=== PATIENT | male | born 1945 | race Hispanic/Latino ===

== ENCOUNTER 2022-04-08 14:27 | Emergency (ER) | payer OTHER, MEDICAID, SELFPAY ==
[2022-04-08] VITALS (9 sets, daily range): BP systolic 132–152; BP diastolic 75–81; PULSE 104–121; RESP 18–25; TEMP 37.3–37.5; O2SAT 93–100; BMI 29.9
--- NOTE | 2022-04-08 14:42 | DI.RAD.S_ITS ---
PROCEDURE: XR CHEST 1V INDICATIONS: suspected sepsis TECHNIQUE: One view of the chest was acquired. COMPARISON: [facility], , CHEST 2 VIEW, 11/04/2010, 11:13. FINDINGS: Surgical changes and devices: None. Lungs and pleura: Lungs are clear. No pleural effusions or pneumothorax. Mediastinum: Mediastinal contours appear normal. Heart size is normal. Bones and chest wall: No suspicious bony lesions. Overlying soft tissues appear unremarkable. IMPRESSION: No acute cardiopulmonary disease process. Dictated by: Layla Hathaway MD, PhD on 04/08/2022 at 15:03 Approved by: Layla Hathaway MD, PhD on 04/08/2022 at 15:03
--- NOTE | 2022-04-08 14:44 | ED_ITS ---
HPI - Skin/Abscess/Foreign Bdy General Chief complaint: Skin/Abscess/Foreign Body Stated complaint: sepsis Time Seen by Provider: 04/08/22 14:29 History of Present Illness HPI narrative: Is a 76-year-old male history of independent diabetes, hypertension, hyperlipidemia, diabetic neuropathy and retinopathy presenting today with left foot infection. He says he was being seen by podiatry for wound on his foot was referred to wound care but was denied by insurance. Family checked on him today they think over the last 1 week his has gotten worse. His little toe is black the rest of his foot is red. Foul smell as well. No significant drainage. He has not had any fever or chills. Denies any chest pain or shortness of breath. Related Data Home Medications Medication Instructions Recorded Confirmed AMLODIPINE BESYLATE (NORVASC) 10 mg PO Q DAY ##0 12/29/10 ASPIRIN CHEW - 81 mg PO Q DAY ##0 12/29/10 (ASPIRIN) [EYE DROPS] ##0 12/29/10 LOVASTATIN (#MEVACOR) 10 mg PO QDAYPM ##0 03/04/12 lisinopril 5 mg tablet 5 mg PO QDAY ##0 03/04/12 insulin aspart U-100 100 unit/mL 20 unit SQ TIDCC ##0 03/10/12 subcutaneous solution (Novolog U-100 Insulin aspart) insulin glargine 100 unit/mL 50 unit SQ HS #10 mL 03/10/12 subcutaneous solution (Lantus U-100 Insulin) Allergies Allergy/AdvReac Type Severity Reaction Status Date / Time No Known Drug Allergies Allergy Verified 04/08/22 14:56 Review of Systems Review of Systems Narrative: GENERAL: Denies chills, fatigue, malaise, fever, sweats, travel HEENT: Denies sinus pain, ear pain, sore throat, difficulty swallowing, neck pain RESPIRATORY: Denies dyspnea, cough, wheezing, hemoptysis, sputum. CARDIOVASCULAR: Denies chest pain, palpitations, orthopnea, edema GASTROINTESTINAL: Denies nausea, vomiting, abdominal pain, diarrhea, constipation, melena. : Denies dysuria, frequency, incontinence, hematuria, urinary retention, flank pain. MUSCULOSKELETAL: Denies weakness, joint pain, or bony pain SKIN: See HPI NEUROLOGIC: Denies weakness, dizziness, headache, numbness, change in speech, confusion PSYCHIATRIC: No concerning psychosocial issues. 12 point review of systems is negative except for those stated above and HPI Exam Initial Vital Signs Initial Vital Signs: Vital Signs Pulse Rate 112 H 04/08/22 14:32 Respiratory Rate 21 04/08/22 14:32 Pulse Oximetry 95 04/08/22 14:32 GENERAL: Alert 76-year-old male HEENT: Head atraumatic,EOMI, pupils reactive, face symmetric, moist mucous membranes CARDIOVASCULAR: Regular rate and rhythm without murmurs, rubs or gallops. RESPIRATORY: Breath sounds equal bilaterally, no wheezes rales or rhonchi. ABDOMEN: Soft, nontender. Normoactive bowel sounds all 4 quadrants. No guarding or rebound. EXTREMITIES: Normal range of motion, no clubbing or edema. Neurovascularly intact NEUROLOGICAL: Alert and oriented x4. SKIN: Left little toe is black with a wound ulcer on the bottom of the foot is not draining top of the foot is erythematous foul smelling but no drain in Course Orders Ordered: ED Orders 04/08/22 14:35 CRP [C-Reactive Protein Quant] Stat Complete Blood Count AUTO DIFF Stat Comprehensive Metabolic Panel Stat ESR [Erythrocyte Sedimentation Rate] Stat Lactate (Lactic Acid) Stat Lipase Stat Partial Thromboplastin Time Stat Procalcitonin Stat Prothrombin Time INR Stat 04/08/22 14:42 XR chest 1V Stat EKG-12 Lead Stat RT Consult Eval and Treat NOW 04/08/22 14:54 XR foot LT min 3V Stat 04/08/22 15:12 Blood Culture Stat 04/08/22 17:00 COVID19 -Nasal RAPID/Pre-Proc Stat Discontinued Medications Sodium Chloride (Normal Saline 0.9%) 1,000 mls @ 1,000 mls/hr IV BOLUS ONE Stop: 04/08/22 15:41 Last Admin: 04/08/22 14:46 Dose: Not Given Documented By: BRIAN Cefepime HCl 2 gm/ Sodium (Chloride) 100 mls @ 200 mls/hr IV NOW ONE Stop: 04/08/22 14:55 Last Infusion: 04/08/22 16:05 Dose: 0 mls/hr Documented By: Admin: 04/08/22 15:11 Dose: 200 mls/hr Documented By: LUCA Vancomycin HCl/Dextrose (Vancomycin) 1,500 mg in 300 mls @ 200 mls/hr IV NOW ONE Stop: 04/08/22 16:23 Last Admin: 04/08/22 15:12 Dose: 200 mls/hr Documented By: LUCA Lactated Ringer's (Lactated Ringers) 2,925.66 mls @ 975.22 mls/hr 30 ml/kg infuse over 3 hr (2925.66 ml) IV NOW ONE Stop: 04/08/22 18:05 Last Admin: 04/08/22 15:14 Dose: 975.22 mls/hr Documented By: LUCA Meropenem 1,000 mg/ Sodium (Chloride) 100 mls @ 200 mls/hr IV NOW ONE Stop: 04/08/22 15:42 Last Admin: 04/08/22 16:26 Dose: 200 mls/hr Documented By: LUCA Clindamycin Phosphate (Cleocin) 600 mg in 50 mls @ 50 mls/hr IV NOW ONE Stop: 04/08/22 16:42 Last Admin: 04/08/22 16:05 Dose: 50 mls/hr Documented By: LUCA Metoprolol Tartrate (Metoprolol Tartrate 5 Mg/5 Ml Inj) 5 mg IV NOW ONE Stop: 04/08/22 14:55 Last Admin: 04/08/22 15:11 Dose: 5 mg Documented By: LUCA Vital Signs Vital signs: Vital Signs - 8 hr 04/08/22 14:37 04/08/22 14:32 04/08/22 15:00 Temperature 99.1 F Pulse Rate 112 H 112 H Respiratory Rate 18 21 Blood Pressure 135/75 146/76 H Pulse Oximetry 99 95 Oxygen Delivery Method Room Air 04/08/22 15:00 04/08/22 15:32 04/08/22 15:38 Temperature Pulse Rate 111 H 121 H 105 H Respiratory Rate 25 H 19 Blood Pressure Pulse Oximetry 93 99 Oxygen Delivery Method 04/08/22 15:38 04/08/22 16:00 04/08/22 16:00 Temperature Pulse Rate 104 H Respiratory Rate 19 Blood Pressure 132/76 139/80 Pulse Oximetry 99 Oxygen Delivery Method 04/08/22 16:30 04/08/22 16:30 04/08/22 17:00 Temperature Pulse Rate 109 H Respiratory Rate 23 Blood Pressure 143/78 H 152/81 H Pulse Oximetry 99 Oxygen Delivery Method 04/08/22 17:00 04/08/22 17:30 04/08/22 17:30 Temperature 99.5 F Pulse Rate 111 H 111 H Respiratory Rate 23 19 Blood Pressure 140/81 Pulse Oximetry 99 100 Oxygen Delivery Method MDM - Skin/Abscess/Foreign Bdy Lab Data Result diagrams: 04/08/22 14:35 04/08/22 14:35 Labs: Lab Results 04/08/22 04/08/22 04/08/22 Range/Units 14:35 14:35 14:35 WBC 18.6 H (4.5-11.0) X10^3/uL RBC 4.12 L (4.5-5.9) X10^6/uL Hgb 11.2 L (13.5-17.5) g/dL Hct 34.1 L (41-53) % MCV 82.8 (80-100) fL MCH 27.2 (26-34) PG MCHC 32.8 (30-36) % RDW 13.7 (11.6-14.8) % Plt Count 287 (150-400) X10^3/uL Neut % (Auto) 89.5 H (50-75) % Lymph % (Auto) 3.0 L (25-40) % Weston % (Auto) 6.9 (3-14) % Eos % (Auto) 0.1 L (2-4) % Baso % (Auto) 0.5 (0-2) % Neut # (Auto) 96834 H (6320-4809) /uL Lymph # (Auto) 600 L (9753-8781) /uL Weston # (Auto) 1300 H (0-900) /uL Eos # (Auto) 0 (0-450) /uL Baso # (Auto) 100 (0-100) /uL ESR (0-15) MM/HR PT 14.1 H (10.1-12.7) SECONDS INR 1.3 (0.9-1.3) APTT 34 (26.4-36.2) SECONDS Sodium 126 L (137-145) mmol/L Potassium 3.7 (3.4-5.1) mmol/L Chloride 94 L (98-107) mmol/L Carbon Dioxide 20 L (22-32) mmol/L BUN 34 H (9-20) mg/dL Creatinine 2.52 H (0.66-1.25) mg/dL Estimated GFR 26 L (>60) mL/min BUN/Creatinine Ratio 13.5 (6-22) Glucose 162 H (80-110) mg/dL Lactate (0.7-2.1) mmol/L Calcium 8.1 L (8.4-10.2) mg/dL Total Bilirubin 0.6 (0.2-1.3) mg/dL AST 38 (17-59) IU/L ALT 59 H (<50) IU/L Alkaline Phosphatase 117 (38-126) U/L C-Reactive Protein (<1.0) mg/dL Total Protein 6.8 (6.3-8.2) g/dL Albumin 3.2 L (3.5-5.0) g/dL Globulin 3.6 (1.7-4.1) g/dL Albumin/Globulin Ratio 0.9 L (1.0-2.8) Lipase 26 (23-300) U/L Procalcitonin 1.94 H (<0.5) ng/mL SARS-CoV-2 (PCR) (Negative) 04/08/22 04/08/22 04/08/22 Range/Units 14:35 14:35 14:35 WBC (4.5-11.0) X10^3/uL RBC (4.5-5.9) X10^6/uL Hgb (13.5-17.5) g/dL Hct (41-53) % MCV (80-100) fL MCH (26-34) PG MCHC (30-36) % RDW (11.6-14.8) % Plt Count (150-400) X10^3/uL Neut % (Auto) (50-75) % Lymph % (Auto) (25-40) % Weston % (Auto) (3-14) % Eos % (Auto) (2-4) % Baso % (Auto) (0-2) % Neut # (Auto) (6690-9798) /uL Lymph # (Auto) (4441-7021) /uL Weston # (Auto) (0-900) /uL Eos # (Auto) (0-450) /uL Baso # (Auto) (0-100) /uL ESR 108 H (0-15) MM/HR PT (10.1-12.7) SECONDS INR (0.9-1.3) APTT (26.4-36.2) SECONDS Sodium (137-145) mmol/L Potassium (3.4-5.1) mmol/L Chloride (98-107) mmol/L Carbon Dioxide (22-32) mmol/L BUN (9-20) mg/dL Creatinine (0.66-1.25) mg/dL Estimated GFR (>60) mL/min BUN/Creatinine Ratio (6-22) Glucose (80-110) mg/dL Lactate 1.2 (0.7-2.1) mmol/L Calcium (8.4-10.2) mg/dL Total Bilirubin (0.2-1.3) mg/dL AST (17-59) IU/L ALT (<50) IU/L Alkaline Phosphatase (38-126) U/L C-Reactive Protein 26.8 H (<1.0) mg/dL Total Protein (6.3-8.2) g/dL Albumin (3.5-5.0) g/dL Globulin (1.7-4.1) g/dL Albumin/Globulin Ratio (1.0-2.8) Lipase (23-300) U/L Procalcitonin (<0.5) ng/mL SARS-CoV-2 (PCR) (Negative) 04/08/22 Range/Units 17:00 WBC (4.5-11.0) X10^3/uL RBC (4.5-5.9) X10^6/uL Hgb (13.5-17.5) g/dL Hct (41-53) % MCV (80-100) fL MCH (26-34) PG MCHC (30-36) % RDW (11.6-14.8) % Plt Count (150-400) X10^3/uL Neut % (Auto) (50-75) % Lymph % (Auto) (25-40) % Weston % (Auto) (3-14) % Eos % (Auto) (2-4) % Baso % (Auto) (0-2) % Neut # (Auto) (2674-9536) /uL Lymph # (Auto) (0356-8613) /uL Weston # (Auto) (0-900) /uL Eos # (Auto) (0-450) /uL Baso # (Auto) (0-100) /uL ESR (0-15) MM/HR PT (10.1-12.7) SECONDS INR (0.9-1.3) APTT (26.4-36.2) SECONDS Sodium (137-145) mmol/L Potassium (3.4-5.1) mmol/L Chloride (98-107) mmol/L Carbon Dioxide (22-32) mmol/L BUN (9-20) mg/dL Creatinine (0.66-1.25) mg/dL Estimated GFR (>60) mL/min BUN/Creatinine Ratio (6-22) Glucose (80-110) mg/dL Lactate (0.7-2.1) mmol/L Calcium (8.4-10.2) mg/dL Total Bilirubin (0.2-1.3) mg/dL AST (17-59) IU/L ALT (<50) IU/L Alkaline Phosphatase (38-126) U/L C-Reactive Protein (<1.0) mg/dL Total Protein (6.3-8.2) g/dL Albumin (3.5-5.0) g/dL Globulin (1.7-4.1) g/dL Albumin/Globulin Ratio (1.0-2.8) Lipase (23-300) U/L Procalcitonin (<0.5) ng/mL SARS-CoV-2 (PCR) Negative (Negative) Imaging Data Chest x-ray: Radiologist's Impression: Signed Patient: Helio Rosas MR#: [id number] : 1945 Acct:[id number] Age/Sex: 76 / M Date of Service: 04/08/22 Loc: ED Accession Number: [id number] ?? Procedure: XR chest 1V Ordering Provider: Zoila Weiss D.O. PROCEDURE:? XR CHEST 1V ? INDICATIONS:? suspected sepsis ? TECHNIQUE:? One view of the chest was acquired.? ? COMPARISON:? [facility], , CHEST 2 VIEW, 11/04/2010, 11:13. ? FINDINGS:? ? Surgical changes and devices:? None.? ? Lungs and pleura:? Lungs are clear.? No pleural effusions or pneumothorax.? ? Mediastinum:? Mediastinal contours appear normal.? Heart size is normal.? ? Bones and chest wall:? No suspicious bony lesions.? Overlying soft tissues appear unremarkable.? ? IMPRESSION:? No acute cardiopulmonary disease process. ? ? Dictated by: Layla Hathaway MD, PhD on 04/08/2022 at 15:03 ?? Extremity x-ray #1: Radiologist's Impression: Signed Patient: Helio Rosas MR#: [id number] : 1945 Acct:[id number] Age/Sex: 76 / M Date of Service: 04/08/22 Loc: ED Accession Number: [id number] ?? Procedure: XR foot LT min 3V Ordering Provider: Zoila Weiss D.O. PROCEDURE:? XR FOOT LT MIN 3V ? INDICATIONS:? little toe infection ? TECHNIQUE:? 3 views of the foot were acquired.? ? COMPARISON:? None. ? FINDINGS:? ? Bones:? There is destruction of the bone of the distal aspect of the 5th metatarsal and the proximal 5th phalanx.? There may be some bony destruction of the distal aspect of the 4th metatarsal is well.? No acute fracture or dislocation. ? Soft tissues:? There is diffuse soft tissue swelling and subcutaneous emphysema overlying the distal 4th and 5th metatarsals.? Subcutaneous emphysema is visualized on the lateral view tracking superiorly along the dorsum of the foot to the level of the distal tibia. ? ? IMPRESSION:? ? 1. Subcutaneous emphysema and soft tissue swelling overlying the distal aspect of the 4th and 5th metatarsal suspicious for gas-forming infection.? This subcutaneous emphysema tracks more superiorly along the dorsum of the foot to the level of the distal tibia.? Given the extent of emphysema, necrotizing fasciitis should be considered in the differential diagnosis. ? 2. Findings highly suspicious for osteomyelitis of the left 5th distal metatarsal and 5th proximal phalanx.? There may also be osteomyelitis at the distal left 4th metatarsal. ? 3. Septic arthritis at the 5th MTP joint could also be considered in the differential.? ? ? Dictated by: Rima Bernal M.D. on 04/08/2022 at 15:29 ? ? ECG Data Interpretation: EKG 1. Wide complex right bundle branch block rate 111 he no P-waves no ST changes regular, prior ekg 2012 EKG 2. Rate 107 similar to prior no ST changes no P-waves MDM Narrative Medical decision making narrative: Patient's foot is foul smelling he is diabetic x-ray shows gas up to his distal tibia. There is concern for necrotizing fasciitis. Patient is tachycardic but otherwise hemodynamically stable. He has leukocytosis with elevated procalcitonin, ESR, CRP but normal lactic acid of 1.2. Previous records from [facility] have been received and reviewed no blood work at that time with does confirm chronic callus the bottom of left foot. Today foot is definitely more infected. Patient's heart rate is really consistent no P-waves are seen concerning her possible atrial flutter versus sinus but overall was given a small dose it slowed slightly. Will continue to give IV fluids for sepsis. Not convinced of heart arrhythmia at this time although he does have a white complex which is new from his previous EKG in [id number] Zavala, Orthopedics has been updated patient's symptoms test results agrees probable necrotizing fasciitis. But strongly encourage is in recommends transferring for OR debridement. Not capable of ICU postop care. Discussion with patient and family at bedside risk of amputation of foot and possible ICU intubation possible . He does not have a durable power of assistant city attorney he is not he has no children. A filling out the DPOA paperwork at bedside. Multiple calls to hospitals unable to put him on wait list [facility] called [phone]- Dr Edwards, general surgery updated patient's symptoms test results, kindly accepts patient and understands orthopedics request Critical Care Time Critical Care Time Critical Care Time: Yes Total Critical Care Time: 45 Attestation: The high probability of a clinically significant, sudden or life threatening deterioration of the [cardiovascular] system(s) required my full and direct attention, intervention and personal management. The aggregate critical care time was [45] minutes. This time is in addition to time spent performing reported procedures but includes the following: [x] Data Review and interpretation [x] Patient assessment and monitoring of vital signs [x] Documentation [x] Medication orders and management Discharge Plan Departure Patient Disposition: [facility] Clinical Impression: Necrotizing fasciitis Prescriptions: No Action AMLODIPINE BESYLATE (NORVASC) 10 mg PO Q DAY Qty: 0 ASPIRIN CHEW - (ASPIRIN) 81 mg PO Q DAY Qty: 0 [EYE DROPS] Qty: 0 lisinopril 5 MG tablet 5 mg PO QDAY Qty: 0 LOVASTATIN (#MEVACOR) 10 mg PO QDAYPM Qty: 0 insulin aspart U-100 [Novolog U-100 Insulin aspart] 100 UNIT/1 ML solution 20 unit SQ TIDCC Qty: 0 insulin glargine [Lantus U-100 Insulin] 100 UNIT/1 ML solution 50 unit SQ HS Qty: 10 Referrals: Chi Sanchez MD [Primary Care Provider] -
[2022-04-08 14:54] LABS: Add Manual Diff / Slide Review NO; Basophils Absolute Auto 100 /uL (0-100); Basophils Percent Auto 0.5 % (0-2); Eosinophils Absolute Auto 0 /uL (0-450); Eosinophils Percent Auto 0.1 % (2-4); Hematocrit 34.1 % (41-53); Hemoglobin 11.2 g/dL (13.5-17.5); Lymphocytes Absolute Auto 600 /uL (1100-4500); Mean Corpuscular HGB Conc 32.8 % (30-36); Mean Corpuscular Hemoglobin 27.2 PG (26-34); Mean Corpuscular Volume 82.8 fL (80-100); Monocytes Absolute Auto 1300 /uL (0-900); Monocytes Percent Auto 6.9 % (3-14); Neutrophils Absolute Auto 16700 /uL (1500-7000); Neutrophils Percent Auto 89.5 % (50-75); Platelet Count 287 X10^3/uL (150-400); Red Blood Cell Count 4.12 X10^6/uL (4.5-5.9); Red Cell Distribution Width 13.7 % (11.6-14.8); White Blood Cell Count 18.6 X10^3/uL (4.5-11.0)
--- NOTE | 2022-04-08 14:54 | DI.RAD.S_ITS ---
PROCEDURE: XR FOOT LT MIN 3V INDICATIONS: little toe infection TECHNIQUE: 3 views of the foot were acquired. COMPARISON: None. FINDINGS: Bones: There is destruction of the bone of the distal aspect of the 5th metatarsal and the proximal 5th phalanx. There may be some bony destruction of the distal aspect of the 4th metatarsal is well. No acute fracture or dislocation. Soft tissues: There is diffuse soft tissue swelling and subcutaneous emphysema overlying the distal 4th and 5th metatarsals. Subcutaneous emphysema is visualized on the lateral view tracking superiorly along the dorsum of the foot to the level of the distal tibia. IMPRESSION: 1. Subcutaneous emphysema and soft tissue swelling overlying the distal aspect of the 4th and 5th metatarsal suspicious for gas-forming infection. This subcutaneous emphysema tracks more superiorly along the dorsum of the foot to the level of the distal tibia. Given the extent of emphysema, necrotizing fasciitis should be considered in the differential diagnosis. 2. Findings highly suspicious for osteomyelitis of the left 5th distal metatarsal and 5th proximal phalanx. There may also be osteomyelitis at the distal left 4th metatarsal. 3. Septic arthritis at the 5th MTP joint could also be considered in the differential. Dictated by: Rima Bernal M.D. on 04/08/2022 at 15:29 Approved by: Rima Bernal M.D. on 04/08/2022 at 15:33
[2022-04-08 14:55] LABS: INR 1.3 (0.9-1.3); Prothrombin Time 14.1 SECONDS (10.1-12.7)
[2022-04-08 14:58] LABS: PTT Partial Thromboplastin Tim 34 SECONDS (26.4-36.2)
[2022-04-08 15:00] LABS: Lactate (Lactic Acid) 1.2 mmol/L (0.7-2.1)
[2022-04-08 15:01] LABS: Alanine Aminotransferase 59 IU/L (<50); Albumin 3.2 g/dL (3.5-5.0); Alkaline Phosphatase 117 U/L (38-126); Aspartate Aminotransferase 38 IU/L (17-59); BUN Creatinine Ratio 13.5 (6-22); Bilirubin Total 0.6 mg/dL (0.2-1.3); Blood Urea Nitrogen 34 mg/dL (9-20); Calcium 8.1 mg/dL (8.4-10.2); Carbon Dioxide 20 mmol/L (22-32); Chloride 94 mmol/L (98-107); Estimated Glomerular Filt Rate 26 mL/min (>60); Glucose 162 mg/dL (80-110); Potassium 3.7 mmol/L (3.4-5.1); Sodium 126 mmol/L (137-145); Total Protein 6.8 g/dL (6.3-8.2)
[2022-04-08 15:02] LABS: Albumin Globulin Ratio 0.9 (1.0-2.8); Globulin 3.6 g/dL (1.7-4.1); HEMOLYSIS < 15 (0-50); Lipase 26 U/L (23-300)
[2022-04-08] MEDS: METOPROLOL TARTRATE 5 MG/5 ML INJ IV (15:11)
[2022-04-08] MEDS: CEFEPIME 2 GM in SODIUM CHLORIDE 0.9% 100 ML IV (15:11)
[2022-04-08] MEDS: VANCOMYCIN 1,500 MG/300 ML PIGGYBACK 200 MG IV (15:12)
[2022-04-08] MEDS: LACTATED RINGERS 975.22 ML IV (15:14)
[2022-04-08 15:17] LABS: Procalcitonin 1.94 ng/mL (<0.5)
[2022-04-08] MEDS: CLINDAMYCIN 600 MG/50 ML PIGGYBACK 50 MG IV (16:05)
[2022-04-08 16:24] LABS: Erythrocyte Sedimentation Rate 108 MM/HR (0-15)
[2022-04-08] MEDS: MEROPENEM 1,000 MG in SODIUM CHLORIDE 0.9% 100 ML 200 MG IV (16:26)
[2022-04-08 16:47] LABS: C-Reactive Protein Quant 26.8 mg/dL (<1.0)
[2022-04-08 17:33] LABS: COVID19 -Nasal RAPID Negative (Negative)
--- NOTE | 2022-04-12 14:28 | PC.NURSE ---
late entry- IV fluids continued upon transport to [facility] per the RN.
== END 2022-04-08 17:43 | disposition short-term general hospital (02) ==
PROVIDERS: Emergency Provider Emergency Medicine; PCP Internal Medicine
DX: M72.6 Necrotizing fasciitis (principal); R00.0 Tachycardia, unspecified; R79.89 Other specified abnormal findings of blood chemistry; Z20.822 Contact with and (suspected) exposure to COVID-19
CPT/HCPCS: 36415; 71045; 73630; 80053; 83605; 83690; 84145; 85025; 85610; 85651; 85730; 86140; 87040; 87635; 93005; 96365; 96366; 96367; 96368; 96375; 99284; 99291; 99292; C9803; J0692; J2185